=== PATIENT | female | born 1985 | race American Indian/Alaskan Native ===

== ENCOUNTER 2016-10-16 17:00 | Emergency (ER) | payer OTHER ==
[2016-10-16 17:22] VITALS: BP 116/78
[2016-10-16] MEDS ORDERED: predniSONE 20 MG Tab PO ONE (17:44)
[2016-10-16] MEDS ORDERED: HYDROmorphone 1 MG/ML Syringe IM ONE (17:44)
[2016-10-16] MEDS ORDERED: Ketorolac 60 MG/2 ML SDV IM ONE (17:44)
--- NOTE | 2016-10-16 18:15 | EDM.PDOC ---
ED HPI LOWER BACK PAIN/INJURY - General Chief Complaint: Back Pain or Injury Stated Complaint: BACK PAIN Time Seen by Provider: 10/16/16 17:19 Source of Information: Reports: Patient History Limitations: Reports: No limitations - History of Present Illness INITIAL COMMENTS - FREE TEXT/NARRATIVE: Patient is a 31-year-old female presents to the ED complaining of left lower back pain. Patient states discomfort started this past Monday and has been coming and going until Monday. States Monday patient was examined by her primary care provider and the symptoms have been constant since. She was administered Toradol with minimal relief. She was placed on Flexeril to which has overed no relief as well. Patient has a past history of back surgery discectomy at [facility] at L4 and L5. She never received pain relief with the surgery. States the pain is to her lower back with intermittent radiation down the posterior aspect of her leg. Most of the pain is along the left buttocks. She currently has no tingling to her toes. She has utilized icy hot, hot showers, and her TENS unit with no relief. She denies any incontinence to urine or stool, fever chills, or any additional complaints. Timing/Duration: Reports: Constant, Waxing/waning Location: Reports: lower, radiating pain (left posterior leg). Denies: midline , paraspinal Quality: Reports: Ache, Sharp, Stabbing, Throbbing Severity: moderate Improves with: Reports: Other (standing still) Worsens with: Reports: Other (palpation of left SI joint), Movement Context: Reports: other (acute on chronic) Associated Symptoms: Denies: Constipation, Difficulty walking, Paresthesias, Problems urinating Treatments [facility]: Reports: Acetaminophen, NSAIDS - Related Data Allergies/ADRs: Allergies Allergy/AdvReac Type Severity Reaction Status Date / Time No Known Allergies Allergy Verified 10/16/16 17:12 Home Meds: Home Meds . [Unable to Verify Home Med List] 10/16/16 [History] Past Medical History - Past Health History Medical/Surgical History: Denies Medical/Surgical History [employer] History: Reports: Musculoskeletal History: Reports: Other (see below) Other Musculoskeletal History: dissectomy L4 L5 Social & Family History - Family History Family Medical History: Noncontributory - Tobacco Use Smoking Status *Q: Current Every Day Smoker Years of Tobacco use: 10 Packs/Tins Daily: 0.5 - Caffeine Use Caffeine Use: Reports: Coffee, Soda - Recreational Drug Use Recreational Drug Use: No ED ROS GENERAL - Review of Systems Review Of Systems: See Below GI/Abdominal: Reports: No symptoms : Reports: urinary retention (hx of urinary retentions, intermittent, no increase today. ). Denies: dysuria, flank pain, urgency Musculoskeletal: Reports: back pain Neurological: Reports: Difficulty Walking (2nd to intermittent pain). Denies: Numbness, Tingling ED EXAM,LOWER BACK PAIN/INJURY - Physical Exam Exam: See Below Exam Limited By: No limitations General Appearance: alert, WD/WN, no apparent distress, moderate distress Ears: hearing grossly normal Throat/Mouth: Normal voice, No airway compromise Neck: supple Respiratory/Chest: no respiratory distress, lungs clear, normal breath sounds, no accessory muscle use Cardiovascular: normal peripheral pulses, regular rate, rhythm, no murmur GI/Abdominal: normal bowel sounds, soft, non tender, no organomegaly, no distention Back Exam: normal inspection, full range of motion, other (Pain to the left SI joint, pin point). No: CVA tenderness (L), CVA tenderness (R), paraspinal tenderness, vertebral tenderness Extremities: normal inspection, non-tender, no pedal edema, normal capillary refill Neurological: alert, normal mood/affect, normal dorsiflexion, CN II-XII intact, normal plantar flexion, normal gait, no motor/sensory deficits, oriented x 3. No: straight leg raise (L), straight leg raise (R), saddle anesthesia (patient reports) Psychiatric: normal affect, normal mood Skin Exam: Warm, Dry, Intact, Normal color Course - Vital Signs Last Recorded V/S: Last Vital Signs Temp 97.2 F 10/16/16 17:14 Pulse 83 10/16/16 17:14 Resp 18 10/16/16 17:14 BP 116/78 10/16/16 17:14 Pulse Ox 98 10/16/16 17:14 - Orders/Labs/Meds Meds: Medications Discontinued Medications Generic Name Dose Route Start Last Admin Trade Name Freq PRN Reason Stop Dose Admin Hydromorphone HCl 1 mg 10/16/16 17:44 10/16/16 17:51 Dilaudid IM 10/16/16 17:45 1 mg ONETIME ONE Administration Ketorolac Tromethamine 60 mg 10/16/16 17:44 10/16/16 17:50 Toradol IM 10/16/16 17:45 60 mg ONETIME ONE Administration Prednisone 40 mg 10/16/16 17:44 10/16/16 17:50 Prednisone PO 10/16/16 17:45 40 mg ONETIME ONE Administration - Re-Assessments/Exams Free Text/Narrative Re-Assessment/Exam: On examination believe discomfort associated to SI joint inflammation. Pain is pin point left SI joint. Ordered Toradol 60 mg IM, Dilaudid 1 mg IM, and prednisone 40 mg by mouth. 10/16/16 18:52 Pain has diminished with the above therapies. Will discharge patient home with instructions and prescription for prednisone and norco. Departure - Departure Time of Disposition: 18:53 Disposition: Home, Self-Care 01 Condition: good Clinical Impression: SI (sacroiliac) joint inflammation, Low back pain radiating to left leg Instructions: Back Pain, Adult, [id number], Pain Medicine Instructions, Easy- to-Read Referrals: PCP,Not In Area [Primary Care Provider] - Forms: ED Department Discharge Additional Instructions: Take the prednisone as prescribed. Utilize warm compresses/ice as needed for pain. Refrain from any activities that cause worsening pain. Take ibuprofen and tylenol in alternating fashion for pain. For severe pain take norco 1 tab every [address] this evening nor while taking the norco. Suggest following up with your PCP this coming week for reevaluation to further manage pain and additional, treatment/diagnostic testing required. Return to the E.D. for any new or worsening symptoms as discussed.
== END 2016-10-16 19:16 | disposition home or self-care (01) ==
LOC: JD.ED 17:00
DX: M54.5 Low back pain (principal); M46.1 Sacroiliitis, not elsewhere classified; F17.210 Nicotine dependence, cigarettes, uncomplicated
CPT/HCPCS: 96372; 99283; A9270; J1170; J1885; 99284